=== PATIENT | male | born 2000 | race African-American/Black ===

== ENCOUNTER 2021-12-08 10:28 | Emergency (ER) | payer MEDICAID ==
[~2021-12-08] VITALS: Ht 172.7 cm; Wt 106.6 kg
[2021-12-08 10:40] VITALS: BP_SYST 113
[2021-12-08] MEDS ORDERED: IBUPROFEN 800 MG TABLET PO ONE (12:00)
[2021-12-08] MEDS ORDERED: HYDROcodone/ACETAMIN 10-325 MG TAB PO ONE (12:00)
[2021-12-08 12:13] VITALS: BP_SYST 113
== END 2021-12-08 12:13 | disposition home or self-care (01) ==
LOC: SED 10:28
DX: Z02.89 Encounter for other administrative examinations (principal); Z79.899 Other long term (current) drug therapy
CPT/HCPCS: 99283